=== PATIENT | female | born 1960 | race Caucasian/White ===

== ENCOUNTER 2019-06-07 08:33 | Outpatient (CLI) | payer BC, SELFPAY ==
--- NOTE | 2019-06-07 08:59 | US_ITS ---
WS: [id number] ULTRASOUND RIGHT BREAST HISTORY: 6 MO F/U RT BREAST ASYMMETRY COMPARISON: 10/26/2018 TECHNIQUE: 2-D and Doppler. Hyperechoic well-circumscribed mass at 10:00, 3 cm from the nipple is unchanged. Hyperechoic mass coy sures 5 x 4 mm. Vague complex cystic area at 12:00, 3 cm from the nipple measures 6 x 5 mm and is also unchanged. FOLLOW-UP: 6 Month Follow-up Patient to return for diagnostic mammogram September 2019. US/US breast RT limited* [id number] IMPRESSION: BI-RADS: 3-Probably Benign
== END 2019-06-07 08:34 | disposition home or self-care (01) ==
LOC: RADSHAW 08:37
PROVIDERS: Family Provider Family Medicine; PCP Family Medicine; Visit Provider Family Medicine
DX: N64.89 Other specified disorders of breast (principal)
CPT/HCPCS: 76642

== ENCOUNTER 2020-05-10 09:36 | Outpatient (CLI) | payer BC, SELFPAY ==
--- NOTE | 2020-05-10 09:46 | MM_ITS ---
WS: [id number] BILATERAL DIGITAL SCREENING MAMMOGRAPHY WITH CAD CLINICAL INFORMATION: SCREENING HISTORY: Screening mammogram. No current complaints. COMPARISON: TECHNIQUE: Bilateral CC and MLO views. FINDINGS: Scattered fibroglandular densities bilaterally. No suspicious focal mass, asymmetry, calcifications, or architectural distortion. No evidence of malignancy. A few stable punctate calcifications. Surgica l clips left breast. MM/[place] [id number] IMPRESSION: BI-RADS: 2-Benign FOLLOW UP: 1 Year Follow-up Recommend return to annual screening mammography.
== END 2020-05-10 09:37 | disposition home or self-care (01) ==
LOC: RADSHAW 09:38
PROVIDERS: Family Provider Family Medicine; PCP Family Medicine; Visit Provider Family Medicine
DX: Z12.31 Encounter for screening mammogram for malignant neoplasm of breast (principal)
CPT/HCPCS: 77067

== ENCOUNTER 2021-08-01 08:35 | Outpatient (CLI) | payer BC, SELFPAY ==
--- NOTE | 2021-08-01 08:48 | MM_ITS ---
WS: [id number] VIEWS: MLO and CC views both breasts. 3D digital tomosynthesis is also included in this exam. Comparison made with prior exam of 05/10/2020. Findings: There was no sign of mass, architectural distortion or suspicious calcification in either breast. He terogeneously dense MM/[place] [id number] Impression: BI-RADS: 2-Benign FOLLOW-UP: 1 Year Follow-up This mammogram was also analyzed by the Computer Aided Detection System R2 [employer].
== END 2021-08-01 08:36 | disposition home or self-care (01) ==
LOC: RAD 08:38
PROVIDERS: PCP Family Medicine; Visit Provider Family Medicine
DX: Z12.31 Encounter for screening mammogram for malignant neoplasm of breast (principal)
CPT/HCPCS: 77063; 77067

== ENCOUNTER → 2021-12-21 13:33 | Outpatient (BNVA) | payer BC, SELFPAY | PROVIDERS: PCP Family Medicine; Visit Provider Registered Nurse Neonatal Intensive Care | DX: R30.0 Dysuria (principal) | CPT/HCPCS: 81000 ==

== ENCOUNTER → 2022-01-05 10:36 | Outpatient (BNVA) | payer BC, SELFPAY | PROVIDERS: PCP Family Medicine; Visit Provider Registered Nurse Neonatal Intensive Care | DX: N39.0 Urinary tract infection, site not specified (principal); R39.9 Unspecified symptoms and signs involving the genitourinary system | CPT/HCPCS: 81000; 87086 ==

== ENCOUNTER 2022-10-30 10:02 | Outpatient (CLI) | payer BC, SELFPAY ==
--- NOTE | 2022-10-30 10:21 | MM_ITS ---
WS: [id number] DIAGNOSTIC BILATERAL DIGITAL BREAST TOMOSYNTHESIS MAMMOGRAPHY WITH CAD HISTORY: SCREENING, prior breast biopsy. COMPARISON: 08/01/2021, 05/10/2020 TECHNIQUE: Bilateral craniocaudad, mediolateral oblique, and mediolateral views are submitted with to mosdavid and SM. Computer aided detection utilized. Breast composition: The breasts are heterogeneously dense, which may obscure small masses. Numerous b iopsy clips over the medial LEFT breast. Remote biopsy. There are several dystrophic calcifications n ear the biopsy clips which are stable over the past several years. MM/[place] [id number] IMPRESSION: BI-RADS: 2-Benign FOLLOW UP: 1 Year Follow-up
== END 2022-10-30 10:03 | disposition home or self-care (01) ==
PROVIDERS: PCP Family Medicine; Visit Provider Family Medicine
DX: Z12.31 Encounter for screening mammogram for malignant neoplasm of breast (principal)
CPT/HCPCS: 77063; 77067

== ENCOUNTER 2023-07-30 07:55 | Outpatient (CLI) | payer BC, SELFPAY ==
--- NOTE | 2023-07-30 07:59 | MR_ITS ---
WS: [email or web address] MRI CERVICAL SPINE NONCONTRAST HISTORY: CERVICAL RADICULOPATHY COMPARISON: Radiographs 06/23/2023 Technique: Multiplanar, multisequence noncontrast imaging of the cervical spine. The study is compromised by motion artifact on all sequences. C3 and C4 anterolisthesis by 2 mm. No f ractures or marrow edema. Slight reversal of the normal cervical lordosis centered at C5. Signal within the cord evaluation is limited by the motion. Craniocervical junction, C1 and C2 relationship, odontoid process and soft tissues are normal. C2-C3: Normal. C3-C4: Osteophytic ridging and disc bulging. Moderate RIGHT foraminal disc osteophyte with moderate R IGHT foraminal stenosis. C4-C5: Mild osteophytic ridging and disc bulging. Mild central and bilateral foraminal stenosis. C5-C6: Annular disc bulging and osteophytic ridging. Mild central and RIGHT foraminal stenosis. C6-C7: Mild osteophytic ridging and annular disc bulging and facet arthritis. Mild central and bilate ral foraminal stenosis. C7-T1: Mild osteophytic ridging and disc bulging. No stenosis. Paraspinal soft tissues are limited by motion. IMPRESSION: 1. C3 and C4 anterolisthesis by 2 mm. 2. No marrow edema or acute fracture. 3. Slight reversal the normal cervical lordosis centered at C5. 4. C3-4 moderate RIGHT foraminal stenosis due to disc osteophyte. 5. Mild central and bilateral foraminal stenosis due to disc and osteophyte disease at C4-5 and C6-7 . 6. C5-6: Mild central and RIGHT foraminal stenosis due to disc and osteophyte disease.
== END 2023-07-30 07:56 | disposition home or self-care (01) ==
LOC: RAD 07:55
PROVIDERS: PCP Family Medicine; Visit Provider Family Medicine
DX: M54.12 Radiculopathy, cervical region (principal); M48.02 Spinal stenosis, cervical region
CPT/HCPCS: 72141

== ENCOUNTER 2024-01-25 14:47 | Outpatient (CLI) | payer BC, SELFPAY ==
--- NOTE | 2024-01-25 14:48 | MM_ITS ---
WS: [id number] SCREENING DIGITAL BREAST TOMOSYNTHESIS MAMMOGRAM WITH CAD HISTORY: SCREENING COMPARISON: 10/26/2018, 05/10/2020, 10/30/2022 Bilateral CC and MLO with tomosynthesis and synthetic mammography submitted. Computer aided detection analyzed. Breast composition: There are scattered areas of fibroglandular density. Increasing calcifications in the anterior lateral LEFT breast over the past several years. These may be further evaluated with ma gnification views. Numerous biopsy clips in the medial LEFT breast are unchanged. No recurrent mass. Smaller calcifications noted within the RIGHT breast are stable since at least 2020. MM/MM scr tomosynthesis [id number] IMPRESSION: BI-RADS: 0 - Incomplete: Need additional imaging evaluation. FOLLOW UP: Need Additional Imaging LEFT BREAST: Magnification views of suspicious calcification CC and MLO. Nito Phillips
== END 2024-01-25 14:48 | disposition home or self-care (01) ==
LOC: RAD 14:48
PROVIDERS: PCP Family Medicine; Visit Provider Family Medicine
DX: Z12.31 Encounter for screening mammogram for malignant neoplasm of breast (principal)
CPT/HCPCS: 77063; 77067

== ENCOUNTER 2024-03-14 10:53 | Outpatient (CLI) | payer BC, SELFPAY ==
--- NOTE | 2024-03-14 12:08 | MM_ITS ---
WS: [email or web address] DIAGNOSTIC LEFT DIGITAL TOMOSYNTHESIS MAMMOGRAPHY WITH CAD. HISTORY: Abnormal mammo, calcifications increasing in number. COMPARISON: 01/25/2024, 10/30/2022 Technique: Magnification views calcifications LEFT breast. mL. Calcifications are reidentified on the magnification views in the anterior LEFT breast just lateral t o the nipple line. These pleomorphic calcifications are pleomorphic and have increased in number and size. There is a small cluster of calcifications in a linear distribution which need to be further ev aluated by biopsy. There are also numerous clips from prior surgery in the subareolar location. These calcifications could be dystrophic. MM/MM diag LT tomosynthesis [id number] IMPRESSION: BI-RADS: 4- Suspicious Finding - Biopsy Should be Considered FOLLOW UP: Stereotactic Biopsy Recommended
== END 2024-03-14 10:54 | disposition home or self-care (01) ==
LOC: RAD 10:53
PROVIDERS: PCP Family Medicine; Visit Provider Family Medicine
DX: R92.2 Inconclusive mammogram (principal); R92.1 Mammographic calcification found on diagnostic imaging of breast
CPT/HCPCS: 77061; G0279

== ENCOUNTER 2024-04-01 15:16 | Outpatient (CLI) | payer SELFPAY ==
[2024-04-01 16:19] LABS: HIV 1 & 2 Antibody Non-Reactive (Non-Reactiv); HIV 1 & 2 Antigen Non-Reactive (Non-Reactiv)
[2024-04-01 16:25] LABS: Hepatitis B Surface AB 587.4 (11.5-1000); Hepatitis B Surface Antigen Non-Reactive (Nonreactive); Hepatitis C Virus Antibody Non-Reactive (Nonreactive)
== END 2024-04-01 15:17 | disposition home or self-care (01) ==
PROVIDERS: PCP Family Medicine
DX: Z01.89 Encounter for other specified special examinations (principal)
CPT/HCPCS: 86706; 86803; 87340; 87806

== ENCOUNTER 2024-05-17 12:48 | Outpatient (CLI) | payer BC, SELFPAY ==
--- NOTE | 2024-05-17 | MM_ITS ---
WS: [email or web address] STEREOTACTIC LEFT BREAST BIOPSY WITH VACUUM ASSISTANCE HISTORY: ABNORMAL MAMMOGRAM COMPARISON: 03/14/2024, 01/25/2024, Procedure, risks and complications were explained to the patient. Medications and prior radiographs a re reviewed. LEFT breast calcifications are located. Calcification localized just lateral to the anterior nipple l ine. Calcifications are targeted in the craniocaudal projection. The skin is cleansed with ChloraPrep and anesthetized with 1% buffered lidocaine. Deeper soft tissues anesthetized with a combination of lidocaine and epinephrine. Small dermatome is made. Needle advanced into the LEFT breast. Stereotacti c imaging reveals appropriate positioning adjacent calcifications. Multiple vacuum-assisted core biop sies are obtained. No complications were encountered. Post biopsy specimen radiograph reveals numerous calcifications. Biopsy clip is placed in the cavity. Post imaging reveals good placement of the clip. No migration. Pressures held for approximately 15 minutes. No bleeding. Dressing applied. Patient discharged with n o complications. There is no bleeding. With any questions or complications patient is to return. MM/[place] [id number] IMPRESSION: 1. Uncomplicated LEFT breast stereotactic biopsy. 2. Specimen contains numerous calcifications. Pathology: Fibrocystic changes with apocrine metaplasia, usual duct hyperplasia and duct ectasia. Negative for malignancy. RECOMMENDATION: Diagnostic LEFT mammogram in 6 months.
--- NOTE | 2024-05-17 | MM_ITS ---
WS: [email or web address] STEREOTACTIC LEFT BREAST BIOPSY WITH VACUUM ASSISTANCE HISTORY: ABNORMAL MAMMOGRAM COMPARISON: 03/14/2024, 01/25/2024, Procedure, risks and complications were explained to the patient. Medications and prior radiographs a re reviewed. LEFT breast calcifications are located. Calcification localized just lateral to the anterior nipple l ine. Calcifications are targeted in the craniocaudal projection. The skin is cleansed with ChloraPrep and anesthetized with 1% buffered lidocaine. Deeper soft tissues anesthetized with a combination of lidocaine and epinephrine. Small dermatome is made. Needle advanced into the LEFT breast. Stereotacti c imaging reveals appropriate positioning adjacent calcifications. Multiple vacuum-assisted core biop sies are obtained. No complications were encountered. Post biopsy specimen radiograph reveals numerous calcifications. Biopsy clip is placed in the cavity. Post imaging reveals good placement of the clip. No migration. Pressures held for approximately 15 minutes. No bleeding. Dressing applied. Patient discharged with n o complications. There is no bleeding. With any questions or complications patient is to return. MM/[place] [id number] IMPRESSION: 1. Uncomplicated LEFT breast stereotactic biopsy. 2. Specimen contains numerous calcifications. Pathology: Fibrocystic changes with apocrine metaplasia, usual duct hyperplasia and duct ectasia. Negative for malignancy. RECOMMENDATION: Diagnostic LEFT mammogram in 6 months.
--- NOTE | 2024-05-17 | MM_ITS ---
WS: [email or web address] STEREOTACTIC LEFT BREAST BIOPSY WITH VACUUM ASSISTANCE HISTORY: ABNORMAL MAMMOGRAM COMPARISON: 03/14/2024, 01/25/2024, Procedure, risks and complications were explained to the patient. Medications and prior radiographs a re reviewed. LEFT breast calcifications are located. Calcification localized just lateral to the anterior nipple l ine. Calcifications are targeted in the craniocaudal projection. The skin is cleansed with ChloraPrep and anesthetized with 1% buffered lidocaine. Deeper soft tissues anesthetized with a combination of lidocaine and epinephrine. Small dermatome is made. Needle advanced into the LEFT breast. Stereotacti c imaging reveals appropriate positioning adjacent calcifications. Multiple vacuum-assisted core biop sies are obtained. No complications were encountered. Post biopsy specimen radiograph reveals numerous calcifications. Biopsy clip is placed in the cavity. Post imaging reveals good placement of the clip. No migration. Pressures held for approximately 15 minutes. No bleeding. Dressing applied. Patient discharged with n o complications. There is no bleeding. With any questions or complications patient is to return. MM/MM surgical specimen LT IMPRESSION: 1. Uncomplicated LEFT breast stereotactic biopsy. 2. Specimen contains numerous calcifications. Pathology: Fibrocystic changes with apocrine metaplasia, usual duct hyperplasia and duct ectasia. Negative for malignancy. RECOMMENDATION: Diagnostic LEFT mammogram in 6 months.
== END 2024-05-17 12:49 | disposition home or self-care (01) ==
LOC: RAD 12:48
PROVIDERS: PCP Family Medicine; Visit Provider Family Medicine
DX: R92.8 Other abnormal and inconclusive findings on diagnostic imaging of breast (principal); N60.82 Other benign mammary dysplasias of left breast; N60.42 Mammary duct ectasia of left breast; R92.1 Mammographic calcification found on diagnostic imaging of breast
CPT/HCPCS: 19081; 77065; 88305

== ENCOUNTER 2024-06-27 15:25 | Outpatient (CLI) | payer BC, SELFPAY ==
[2024-06-27 16:25] LABS: Hepatitis B Surface Antigen Non-Reactive (Nonreactive); Hepatitis C Virus Antibody Non-Reactive (Nonreactive)
[2024-06-27 16:32] LABS: HIV 1 & 2 Antibody Non-Reactive (Non-Reactiv); HIV 1 & 2 Antigen Non-Reactive (Non-Reactiv)
== END 2024-06-27 15:26 | disposition home or self-care (01) ==
LOC: LAB 15:26
PROVIDERS: PCP Family Medicine
DX: Z57.8 Occupational exposure to other risk factors (principal); W46.0XXA Contact with hypodermic needle, initial encounter; Y99.0 Civilian activity done for income or pay
CPT/HCPCS: 86803; 87340; 87806

== ENCOUNTER 2024-11-22 09:26 | Outpatient (CLI) | payer BC, SELFPAY ==
--- NOTE | 2024-11-22 09:38 | MM_ITS ---
WS: [email or web address] DIAGNOSTIC LEFT DIGITAL BREAST TOMOSYNTHESIS WITH CAD HISTORY: ABNORMAL MAMMOGRAM, 6-month follow-up stereotactic biopsy calcifications. COMPARISON: 05/17/2024, 03/14/2024 and 01/25/2024 Left craniocaudal, mediolateral oblique and medial lateral images are submitted with tomosynthesis and SM. Computer aided detection performed. Breast composition: There are scattered areas of fibroglandular density. Postsurgical changes are noted in the LEFT breast. Biopsy clip noted in the central breast at the site of the stereotactic biopsy. The extent of calcifications has decreased from the prior stereotactic biopsy. No mass. No increasing cluster of calcifications. MM/MM diag LT tomosynthesis [id number] IMPRESSION: BI-RADS: 2 - Benign. FOLLOW UP: 1 Year Follow-up Return to annual screening mammography.
== END 2024-11-22 09:27 | disposition home or self-care (01) ==
PROVIDERS: PCP Family Medicine; Visit Provider Family Medicine
DX: R92.8 Other abnormal and inconclusive findings on diagnostic imaging of breast (principal)
CPT/HCPCS: 77061; G0279